=== PATIENT | male | born 1980 | race Native Hawaiian/Other Pacific Islander ===

== ENCOUNTER 2018-05-08 06:15 | Emergency (ER) | payer OTHER ==
[~2018-05-08] VITALS: Ht 188 cm; Wt 90.7 kg
[2018-05-08 06:26] VITALS: TEMP 96.8
[2018-05-08 08:30] VITALS: BP 126/72
== END 2018-05-08 08:30 | disposition home or self-care (01) ==
LOC: ED 06:15
PROC: 0HQFXZZ Repair Right Hand Skin, External Approach (ICD-10-PCS; principal; 2018-05-08)
PROC: 2W3JX1Z Immobilization of Right Finger using Splint (ICD-10-PCS; 2018-05-08)
DX: S61.222A Laceration with foreign body of right middle finger without damage to nail, initial encounter (principal); S61.224A Laceration with foreign body of right ring finger without damage to nail, initial encounter; S62.654A Nondisplaced fracture of middle phalanx of right ring finger, initial encounter for closed fracture; W31.1XXA Contact with metalworking machines, initial encounter; Y92.69 Other specified industrial and construction area as the place of occurrence of the external cause
CPT/HCPCS: 90471; 90715; 99283; J7040